=== PATIENT | male | born 1950 | race Caucasian/White ===

== ENCOUNTER 2017-05-18 11:00 | Day surgery (SDC) | payer MEDICARE, BC ==
[2017-05-17 12:31] LABS: BLOOD UREA NITROGEN 12 mg/dL (7-18)
[2017-05-17 12:34] LABS: ASPARTATE AMINO TRANSFERASE 23 U/L (15-37)
[~2017-05-18] VITALS: Ht 180.3 cm; Wt 103.6 kg
[~2017-05-18 11:00] MED LIST: AMLO5TAB2 PO; ARGI1000 PO; ASPI-621 PO; ATOR20TA9 PO; EZET10TA18 PO; IBUP-1484 PO; LACT1CAP37 PO; LOSA100T6 PO; METF10002 PO; RESV100C PO; SAW/1TAB2 PO; TANZEUM SC; UBID100C19 PO; [UNRECOGNIZED DRUG - OTHER] PO; [UNRECOGNIZED DRUG - OTHER] PO; [UNRECOGNIZED DRUG - OTHER] PO
[2017-05-18] MEDS ORDERED: BUPIVACAINE/PF 0.5% ONE (11:13)
[2017-05-18] MEDS ORDERED: EPINEPHRINE 1 MG/ML, 1ML ONE (11:13)
[2017-05-18] MEDS ORDERED: LIDOCAINE 1%, 2ML ONE (11:19)
[2017-05-18 11:21] VITALS: BP 132/84
[2017-05-18] MEDS ORDERED: LACTATED RINGERS 1,000 ML IV SCH (11:36)
[2017-05-18] MEDS ORDERED: LIDOCAINE 1%, 2ML SQ PRN (12:00)
[2017-05-18] MEDS ORDERED: FENTANYL PF 100 MCG/2ML ONE ×3 (12:28→13:33)
[2017-05-18] MEDS ORDERED: CEFAZOLIN 1,000 MG ONE (12:29)
[2017-05-18] MEDS ORDERED: ONDANSETRON 2MG/ML, 2ML ONE (12:29)
[2017-05-18] MEDS ORDERED: PROPOFOL 10 MG/ML, 20ML ONE (12:29)
[2017-05-18] MEDS ORDERED: ROCURONIUM 10 MG/ML ONE (12:29)
[2017-05-18] MEDS ORDERED: LIDOCAINE GEL 2%, 5ML ONE (12:29)
[2017-05-18] MEDS ORDERED: NEOSTIGMINE 1 MG/ML, 10ML ONE (12:29)
[2017-05-18] MEDS ORDERED: GLYCOPYRROLATE 0.2MG/1ML, 5ML ONE (12:29)
[2017-05-18] MEDS ORDERED: MIDAZOLAM 1 MG/ML, 2ML ONE (12:29)
[2017-05-18] MEDS ORDERED: DEXAMETHASONE 4 MG/ML, 1ML ONE (12:29)
[2017-05-18] MEDS ORDERED: SUCCINYLCHOLINE 20 MG/ML, 10ML ONE (12:29)
[2017-05-18] MEDS ORDERED: LIDOCAINE-MPF 2% ,5ML ONE (12:30)
[2017-05-18] MEDS ORDERED: BUPIVACAINE/PF-EPI 0.5% 1:200K INFIL ONE (12:58)
[2017-05-18] MEDS ORDERED: ONDANSETRON 2MG/ML, 2ML IVPush PRN ×2 (13:00→13:30)
[2017-05-18] MEDS ORDERED: HYDROmorphone 1 MG/ML, 1ML IV PRN (13:00)
[2017-05-18] MEDS ORDERED: PROMETHAZINE 25 MG/ML, 1ML IV PRN (13:00)
[2017-05-18] MEDS ORDERED: OXYcodone 5 MG/5 ML ORAL.SOL UDC PO PRN ×2 (13:00→13:30)
[2017-05-18] MEDS ORDERED: FENTANYL PF 100 MCG/2ML IV PRN (13:00)
[2017-05-18] MEDS ORDERED: MIDAZOLAM 1 MG/ML, 2ML IV PRN (13:00)
[2017-05-18] MEDS ORDERED: MEPERIDINE/PF 25MG/0.5ML IVPush PRN (13:00)
[2017-05-18] MEDS ORDERED: LABETALOL 5MG/ML, 20ML IV PRN (13:00)
[2017-05-18] MEDS ORDERED: ALBUTEROL/IPRATROPIUM 2.5MG/0.5MG, 3 ML NPPB PRN (13:00)
[2017-05-18] MEDS ORDERED: ACETAMINOPHEN 325 MG TABLET PO PRN (13:00)
[2017-05-18] MEDS ORDERED: DIAZEPAM 5 MG/ML, 2ML IVPush PRN (13:00)
[2017-05-18] MEDS ORDERED: hydrALAzine 20 MG/ML, 1ML IV PRN (13:00)
[2017-05-18] MEDS ORDERED: KETOROLAC 30 MG/1 ML ONE (13:19)
[2017-05-18] MEDS ORDERED: HYDROmorphone 2 MG/ML, 1ML IVPush PRN (13:30)
[2017-05-18] MEDS ORDERED: ACETAMINOPHEN 650 MG/20.3 ML UDC ONE (13:33)
[2017-05-18] MEDS ORDERED: OXYcodone 5 MG/5 ML ORAL.SOL UDC ONE (13:33)
== END 2017-05-18 16:40 ==
LOC: OUT 11:00
PROVIDERS: ATTEND Surgery
DX: K40.90 Unilateral inguinal hernia, without obstruction or gangrene, not specified as recurrent (principal); E11.9 Type 2 diabetes mellitus without complications; E78.5 Hyperlipidemia, unspecified; I10 Essential (primary) hypertension; Z79.82 Long term (current) use of aspirin; Z72.89 Other problems related to lifestyle; Z98.890 Other specified postprocedural states; Z88.0 Allergy status to penicillin
CPT/HCPCS: 36415; 49650; 80053; 82962; 93005; J0171; J0690; J1100; J1885; J2250; J2405; J2704; J2710; J3010; J3490; C1781; J0330